=== PATIENT | female | born 1985 | race Caucasian/White ===

== ENCOUNTER 2022-03-19 10:31 | Emergency (ER) | payer MEDICAID, SELFPAY ==
[2022-03-19 10:32] VITALS: BP 129/74; PULSE 72; RESP 16; TEMP 36.6; O2SAT 100; BMI 21.7
--- NOTE | 2022-03-19 10:49 | CT_ITS ---
STUDY: CT ABDOMEN AND PELVIS WITHOUT CONTRAST REASON FOR EXAM: Female, 36 years old. RLQ pain RADIATION DOSAGE (If Supplied By Facility): CTDIvol = ( 7.05 ) mGy, DLP = ( 332.96 ) mGycm TECHNIQUE: Transaxial images were obtained from the dome of the diaphragm to the symphysis pubis without oral contrast, and without intravenous contrast. Sagittal and coronal images were reconstructed. Individualized dose optimization techniques were used for this CT. COMPARISON: None. FINDINGS: The visualized lung bases are unremarkable. The visualized portions of the heart are within normal limits. Normal liver. Normal gallbladder and extrahepatic biliary system. Normal spleen. Normal pancreas. Normal bilateral adrenal glands. Normal right kidney. Normal left kidney. Normal visualized stomach. Normal small intestine. Normal colon. The appendix is visualized and appears normal. Normal abdominal aorta. Normal inferior vena cava. Normal retroperitoneum. Normal urinary bladder. Follicles are seen in the right ovary. The patient is status post bilateral tubal ligation. Calcified phleboliths are seen within the pelvis. Normal abdominal wall. Normal osseous structures. CT/Abdomen/Pelvis without Cont IMPRESSION: Follicles are seen in the right ovary. Electronically Signed: Julio Howard MD at 12:07 EDT ,
--- NOTE | 2022-03-19 10:52 | EDS_ITS ---
HPI History of Present Illness Chief Complaint: Abd Pain Informant: patient Onset/Context/Timing Onset: Yesterday Context: Gradual Onset Timing: Waxes and wanes Current Severity: Moderate Maximum Severity: Moderate Narrative Narrative: Patient present secondary to right lower quadrant pain. Symptoms started yesterday and been waxing and waning. She denies urinary or bowel symptoms. No fever or chills. She does have history of prior ectopic in the right fallopian tube has been removed. PFSH PFSH Medical History Hx of gastroesophageal reflux (GERD) Home Medications vit,[id number] [Prenatabs FA] 1 tab PO DAILY 02/26/15 [History Last Taken Unknown] dicyclomine 20 mg PO TIDAC #20 capsule 02/07/16 [Rx Last Taken Unknown] omeprazole 20 mg PO DAILY #30 capsule 02/07/16 [Rx Last Taken Unknown] hydrocodone-acetaminophen 1 tab PO Q6H PRN 3 Days #10 tab 03/19/22 [Rx Last Taken Unknown] ondansetron 4 mg PO Q8H PRN #10 tab 03/19/22 [Rx Last Taken Unknown] Allergy/AdvReac Type Severity Reaction Status Date / Time No Known Allergies Allergy Verified 03/19/22 10:34 Social History Smoking Status: Current every day smoker tobacco type: cigarettes ROS ROS ED Constitutional Constitutional ED: Denies chills or fever(s) Eyes Eyes: Denies change in vision ENT ENT ED: Denies sore throat Cardiovascular Cardiovascular: Denies chest pain Respiratory/Chest Respiratory/Chest: Denies cough or dyspnea Gastrointestinal Gastrointestinal: Reports abdominal pain; Denies diarrhea, nausea or vomiting Genitourinary Genitourinary ED: Denies dysuria or hematuria Musculoskeletal Musculoskeletal: Denies back pain Integumentary Denies rash Neurologic Neurologic: Denies headache(s) or weakness Allergic/Immunologic Allergic/Immunologic ED: Denies urticaria EXAM Physical Exam Const Vital Signs: 03/19/22 10:32 03/19/22 12:45 03/19/22 13:21 Temperature 98 F Temperature Source Temporal Pulse Rate 72 Respiratory Rate 16 18 Blood Pressure 129/74 H 126/88 H 148/84 H Blood Pressure Mean 92 100 105 Pulse Ox 100 Oxygen Delivery Method Mechanical Ventilator Positive well nourished and well developed General Appearance ED: well developed HEENT Reports moist mucous membranes Eyes PERRL and EOMs intact bilaterally Neck supple Chest Wall inspection of chest normal and palpation of chest normal Resp normal respiratory effort and clear to auscultation bilaterally Cardio regular rate and regular rhythm GI Palpation: soft and tender RLQ Back/Spine no CVA tenderness Extremity normal to inspection Neuro oriented x3 Sensorium / Orientation: alert Psych mental status grossly normal Skin no rashes or lesions noted MDM MDM MDM Narrative Medical decision making narrative: Patient given morphine, Toradol, Zofran, IV fluids. Lab work, urinalysis, CT flank obtained. Lab Data Attestation: I reviewed the patient's lab results. Labs: Laboratory Results - last 24 hr 03/19/22 03/19/22 03/19/22 11:00 11:00 11:00 WBC 8.5 RBC 3.95 L Hgb 13.1 Hct 38.7 MCV 98.0 MCH 33.2 H MCHC 33.9 RDW Std Deviation 50.4 H RDW Coeff of Raul 13.9 Plt Count 223 MPV 9.5 Immature Gran % (Auto) 0.500 Neut % (Auto) 61.3 Lymph % (Auto) 27.8 [place] % (Auto) 9.3 Eos % (Auto) 0.7 Baso % (Auto) 0.4 Absolute Neuts (auto) 5.2 Absolute Lymphs (auto) 2.35 Nucleated RBC % 0 Sodium 140 Potassium 3.2 L Chloride 108 H Carbon Dioxide 30.0 Anion Gap 2 L BUN 6 L Creatinine 0.53 L Estim Creat Clear Calc 134.73 Est GFR (MDRD) Af Amer 166 Est GFR (MDRD) Non-Af 137 BUN/Creatinine Ratio 11.3 Glucose 78 Calcium 8.8 Serum , Qual NEGATIVE Urine Color Urine Clarity Urine pH Ur Specific [place] Urine Protein Urine Glucose (UA) Urine Ketones Urine Occult Blood Urine Nitrite Urine Bilirubin Urine Urobilinogen Ur Leukocyte Esterase Urine RBC Urine WBC Ur Squamous Epith Cells Urine Bacteria Urine Mucus 03/19/22 11:20 WBC RBC Hgb Hct MCV MCH MCHC RDW Std Deviation RDW Coeff of Arul Plt Count MPV Immature Gran % (Auto) Neut % (Auto) Lymph % (Auto) [place] % (Auto) Eos % (Auto) Baso % (Auto) Absolute Neuts (auto) Absolute Lymphs (auto) Nucleated RBC % Sodium Potassium Chloride Carbon Dioxide Anion Gap BUN Creatinine Estim Creat Clear Calc Est GFR (MDRD) Af Amer Est GFR (MDRD) Non-Af BUN/Creatinine Ratio Glucose Calcium Serum , Qual Urine Color Yellow Urine Clarity Sl. Cloudy Urine pH 8.0 Ur Specific [place] 1.010 Urine Protein Negative Urine Glucose (UA) Normal Urine Ketones Negative Urine Occult Blood 25 H Urine Nitrite Negative Urine Bilirubin Negative Urine Urobilinogen Normal Ur Leukocyte Esterase 500 H Urine RBC 0 SEEN Urine WBC 10-25 SEEN Ur Squamous Epith Cells 0-5 SEEN Urine Bacteria 0 SEEN Urine Mucus 0 SEEN Radiography Diagnostic Testing: Clinical Impression(s) from Imaging Studies Abdomen/Pelvis CT 03/19/22 10:49 IMPRESSION: Follicles are seen in the right ovary. Electronically Signed: Julio Howard MD at 12:07 EDT , Pelvis Ultrasound 03/19/22 12:42 IMPRESSION: Normal female pelvis. Electronically Signed: Julio Howard MD at 14:22 EDT , Treatment and Re-Evaluation Narrative: Pain initially improved with medication however did recur. Lab work unremarkable. Urinalysis reveals no bacteria. CT flank reveals normal appendix. Follicles are noted in the right ovary. Pelvic ultrasound performed that shows normal ovary with good blood flow. Patient will be treated with analgesics and nausea medicine at home. Return instructions been provided. Discharge Plan Triage Chief Complaint: Abd Pain ED Provider: Marva Calderon Dx/Rx/DC Orders Clinical Impression: Abdominal pain Instructions: ED Abdominal Pain Unkn Cause Fem Prescriptions: New hydrocodone-acetaminophen 5-325 mg tablet 1 tab PO Q6H PRN (Reason: pain) 3 Days Qty: 10 RF: 0 ondansetron 4 mg tablet,disintegrating 4 mg PO Q8H PRN (Reason: nausea and vomiting) Qty: 10 RF: 0 No Action vit,[id number] [Prenatabs FA] 1 TABLET tablet 1 tab PO DAILY RF: 0 dicyclomine 10 MG capsule 20 mg PO TIDAC Qty: 20 RF: 0 omeprazole 20 MG capsule 20 mg PO DAILY Qty: 30 RF: 0 Primary Care Provider: Care Physician,No Primary Referrals: Sherrill Duarte MD [STAFF PHYSICIAN] - As Needed Care Physician,No Primary [Primary Care Provider] - Disposition Disposition: Home, Self Care
[2022-03-19] MEDS: Ondansetron 4 MG/2 ML Vial IV (11:05)
[2022-03-19] MEDS: 0.9% Normal Saline 1,000 ML 150 ML IV (11:05)
[2022-03-19] MEDS: Ketorolac 30 MG/ML Syringe IV (11:06)
[2022-03-19] MEDS: Morphine 4 MG/ML Syringe IV ×2 (11:07→13:15)
[2022-03-19 11:17] LABS: Absolute Lymphocyte Count 2.35 X10^3/uL (0.83-4.51); Absolute Neutrophil Count 5.2 X10^3/uL (2.0-7.7); Basophil# 0.03 X10^3/uL; Basophil% 0.4 % (0-1); Eosinophil# 0.06 X10^3/uL; Eosinophils% 0.7 % (0-5); Hematocrit 38.7 % (37-47); Hemoglobin 13.1 g/dL (12.0-15.0); Lymphocyte # 2.35 X10^3/ul (0.83-4.51); Lymphocyte % 27.8 % (19-41); Mean Corp Hgb Conc 33.9 g/dL (32-36); Mean Corpuscular Hgb 33.2 pg (27.0-32.0); Mean Platelet Vol. 9.5 fl (6.2-12.0); Monocyte# 0.79 X10^3/uL; Monocyte% 9.3 % (0-10); NRBC Flagged by Analyzer 0 % (0-5); Neutrophil # 5.18 X10^3/uL (2.7-7.7); Neutrophil % 61.3 % (47-70); Platelet Count 223 K/mm3 (150-450); RBC Distribution Width CV 13.9 % (11.6-14.6); RBC Distribution Width SD 50.4 fl (35.1-43.9); Red Blood Count 3.95 M/mm3 (4.2-5.4); White Blood Count 8.5 K/mm3 (4.4-11.0)
[2022-03-19 11:21] LABS: Internal QC Validated? YES +Cl - CLEAR BKGD; Pregnancy, Serum, hCG Quali. NEGATIVE Negative
[2022-03-19 11:34] LABS: Anion Gap 2 (5-15); BUN 6 mg/dL (7-18); BUN/Creat Ratio 11.3 RATIO (10-20); Calcium,Total 8.8 mg/dL (8.5-10.1); Chloride 108 mmol/L (98-107); Creatinine, Serum 0.53 mg/dL (0.55-1.02); EST Glomerular Filtration Rate 137 mL/min (>60); Est Glom Filt Rate - Afr Amer 166 mL/min (>60); Estimated Creatinine Clearance 134.73 ml/min; Glucose 78 mg/dL (74-106); Potassium 3.2 mmol/L (3.5-5.1); Sodium Level 140 mmol/L (136-145)
[2022-03-19 11:35] LABS: Bacteria 0 SEEN /hpf (None Seen); Mucous, Urine 0 SEEN /hpf (<or=2+); Red Blood Cells-Urine 0 SEEN /hpf (0-5)
[2022-03-19 11:42] LABS: Color, Urine Yellow (Yellow); Glucose, Dipstick Normal (Normal); Ketone-Dipstick Negative (Negative); Leukocyte Esterase-Dipstick 500 /ul (Negative); Nitrite-Dipstick Negative (Negative); Occult Blood-Urine 25 /ul (Negative); Protein-Dipstick Negative (Negative); Urine Bilirubin Dipstick Negative (Negative); Urine Clarity Sl. Cloudy (Clear); Urine Urobilinogen Normal (Normal)
[2022-03-19 11:45] LABS: Squamous Epithelial Cells - UA 0-5 SEEN /hpf (5-10); White Blood Cells 10-25 SEEN /hpf (0-5)
--- NOTE | 2022-03-19 12:42 | US_ITS ---
STUDY: ULTRASOUND OF THE FEMALE PELVIS - COMPLETE REASON FOR EXAM: Female, 36 years old. RLQ pain LMP: Unknown. TECHNIQUE: Transabdominal TECHNICAL QUALITY: Adequate. COMPARISON: Comparison is made with prior CT scan abdomen pelvis done earlier today. FINDINGS: The uterus is anteverted and is in a midline position. The uterus measures 8.6 cm x 5.2 cm x 3.8 cm. Normal uterine cervix. The endometrium measures 3.5 mm in thickness, and is hyperechoic. There is no demonstrated endometrial mass. There is no demonstrated myometrial mass. I.U.D. - The patient does not have an I.U.D. The right ovary is visualized. The right ovary measures 3.3 cm x 3.3 cm x 2.2 cm. There is no right ovarian cyst or ovarian mass. There is no visualized right adnexal mass or complex lesion. There is normal arterial and normal venous vascularity. The left ovary is visualized. The left ovary measures 2.9 cm x 1.9 cm x 1.3 cm. There is no left ovarian cyst or ovarian mass. There is no visualized left adnexal mass or complex lesion. There is normal arterial and normal venous vascularity. There is no fluid in the cul-de-sac. The pre void volume of the bladder was 140 ml. US/Pelvic (Non ) IMPRESSION: Normal female pelvis. Electronically Signed: Julio Howard MD at 14:22 EDT ,
[2022-03-19 12:45] VITALS: BP 126/88; RESP 18
[2022-03-19 13:21] VITALS: BP 148/84
== END 2022-03-19 15:00 | disposition home or self-care (01) ==
PROVIDERS: Emergency Provider Emergency Medicine; Visit Provider Emergency Medicine
DX: R10.9 Unspecified abdominal pain (principal); F17.210 Nicotine dependence, cigarettes, uncomplicated; K21.9 Gastro-esophageal reflux disease without esophagitis; Z79.899 Other long term (current) drug therapy
CPT/HCPCS: 74176; 76856; 80048; 81001; 84703; 85025; 96361; 96374; 96375; 96376; 99283; J7030; A4216; J2405